=== PATIENT | male | born 1995 | race African-American/Black ===

== ENCOUNTER 2019-11-26 03:06 | Emergency (ER) | payer OTHER ==
[~2019-11-26] VITALS: Ht 167.6 cm; Wt 83.0 kg
[2019-11-26] MEDS ORDERED: METOCLOPRAMIDE INJ 10MG/2ML VIAL (J2765 PER 1) IV ONE (04:30)
[2019-11-26] MEDS ORDERED: KETOROLAC 30 MG/ML 1ML VIAL IV ONE (04:30)
[2019-11-26] MEDS ORDERED: diphenhydrAMINE 50MG/ML VIAL (J1200) IV ONE (04:30)
[2019-11-26 05:37] VITALS: BP 133/68
== END 2019-11-26 05:49 | disposition home or self-care (01) ==
LOC: M ED 03:06
DX: R51 Headache (principal); Z79.2 Long term (current) use of antibiotics
CPT/HCPCS: 96374; 99284; J1200; J1885; J2765

== ENCOUNTER 2020-01-06 18:07 | Emergency (ER) | payer OTHER ==
[~2020-01-06] VITALS: Ht 167.6 cm; Wt 85.1 kg
[2020-01-06] MEDS ORDERED: IBUPROF (18:15)
[2020-01-06] MEDS ORDERED: AUGM875T28 PO (20:35)
[2020-01-06] MEDS ORDERED: AUGMENTIN 875 MG TAB PO ONE (20:45)
[2020-01-06] MEDS ORDERED: ACETAMINOPHEN 500 MG TAB PO ONE (20:45)
[2020-01-06 21:04] VITALS: BP 124/78
== END 2020-01-06 21:08 | disposition home or self-care (01) ==
LOC: M ED 18:07
DX: J01.90 Acute sinusitis, unspecified (principal); M79.10 Myalgia, unspecified site; G44.209 Tension-type headache, unspecified, not intractable; Z11.59 Encounter for screening for other viral diseases

== ENCOUNTER 2020-02-27 18:15 | Emergency (ER) | payer OTHER ==
[~2020-02-27] VITALS: Ht 167.6 cm; Wt 85.7 kg
[2020-02-27 18:15] VITALS: BP 128/80
[~2020-02-27 18:15] MED LIST: AUGM875T28 PO; IBUPROF
== END 2020-02-27 20:35 | disposition left against medical advice (07) ==
LOC: M ED 18:15
DX: Z53.21 Procedure and treatment not carried out due to patient leaving prior to being seen by health care provider (principal)

== ENCOUNTER 2020-04-14 00:24 | Emergency (ER) | payer OTHER ==
[~2020-04-14] VITALS: Ht 167.6 cm; Wt 86.4 kg
[2020-04-14] MEDS ORDERED: KETOROLAC 30 MG/ML 1ML VIAL IV ONE (02:00)
[2020-04-14] MEDS ORDERED: NS 1,000 ML IV ONE (02:00)
--- NOTE | 2020-04-14 02:55 | REPVR ---
PROCEDURE INFORMATION: Exam: XR Chest, 1 View Exam date and time: 04/14/2020 2:15 AM Age: 24 years old Clinical indication: Covid positive; Additional info: R/O pneumonia TECHNIQUE: Imaging protocol: XR of the chest Views: 1 view. COMPARISON: No relevant prior studies available. FINDINGS: Lungs: Unremarkable. No consolidation. No pulmonary edema. Pleural space: Unremarkable. No pleural effusion or pneumothorax is identified. Heart/Mediastinum: Unremarkable. No cardiomegaly. Bones/joints: Unremarkable. IMPRESSION: No acute findings. Electronically signed by: Jorge Romero On 04/14/2020 02:55:15 AM
[2020-04-14] MEDS ORDERED: MECL1TAB31 PO (05:11)
[2020-04-14] MEDS ORDERED: IBUP-1022 PO (05:11)
[2020-04-14] MEDS ORDERED: MECLIZINE 25 MG TABLET PO ONE (05:15)
[2020-04-14 05:30] VITALS: BP 93/44
== END 2020-04-14 05:58 | disposition home or self-care (01) ==
LOC: EEVIPCON 00:24 → M ED 00:24
DX: U07.1 COVID-19 (principal)
CPT/HCPCS: 71045; 87486; 87581; 87633; 87798; 96361; 96374; 99284; J1885